=== PATIENT | female | born 1995 | race Caucasian/White ===

== ENCOUNTER → 2017-07-15 | Emergency (ER) | payer SELFPAY ==
[~2017-07-15] VITALS: Ht 152.4 cm; Wt 72.7 kg
[~2017-07-15] MED LIST: CEFTIN500 MG PO; CLARITIN 1010 MG/TAB; CONCERTA54 MG; INTUNIV4 MG PO; LORATADINE10 MG PO; LORTAB 5/500 501 TAB PO; VITAMINS; [UNRECOGNIZED DRUG - OTHER] PO
[2017-07-15 15:44] VITALS: TEMP 98.4
[2017-07-15 18:21] VITALS: BP 122/74; PULSE 87
== END ==
LOC: COL.ER 14:48
DX: T74.21XA Adult sexual abuse, confirmed, initial encounter (principal); Y07.59 Other non-family member, perpetrator of maltreatment and neglect
CPT/HCPCS: J0696

== ENCOUNTER → 2017-07-15 | Outpatient (REF) ==
[~2017-07-15] VITALS: Ht 152.4 cm; Wt 72.7 kg
[2017-07-15 15:44] VITALS: BP 128/79; PULSE 75; TEMP 98.4
== END ==
LOC: COL.ER 15:05
DX: Z04.41 Encounter for examination and observation following alleged adult rape (principal)

== ENCOUNTER 2018-01-19 16:48 | Emergency (ER) | payer OTHER ==
[~2018-01-19] VITALS: Ht 152.4 cm; Wt 80.9 kg
[2018-01-19 16:54] VITALS: TEMP 98.1
[2018-01-19 18:01] LABS: BASO % 0.3 % (0.0-2.0); EOS # 0.2 (0.0-0.7); EOS % 1.8 % (0-4.0); GRAN # 6.8 (1.4-6.5); GRAN % 74.4 % (42.2-75.2); HEMATOCRIT 40.8 % (37.0-47.0); HEMOGLOBIN 13.7 g/dl (12.5-16.0); LYMPH # 1.6 (1.2-3.4); LYMPH % 17.9 % (20.0-51.0); MEAN CELL VOLUME 84 fl (80.0-100.0); MEAN CORPUSCULAR HEMOGLOBIN 28 pg (27.0-31.0); MEAN CORPUSCULAR HGB CONC 34 g/dl (33.0-37.0); MEAN PLATELET VOLUME 9.8 fl (7.4-10.4); MONO # 0.5 (0.1-0.6); MONO % 5.4 % (1.7-9.3); PLATELET COUNT 263 K/mm3 (130-400); RED BLOOD COUNT 4.84 M/mm3 (4.10-5.30)
[2018-01-19 18:10] LABS: ALBUMIN 4.2 gm/dL (3.5-5.0); BILIRUBIN,TOTAL 0.3 mg/dL (0.0-1.0); CREATININE, serum 0.55 mg/dL (0.52-1.25); POTASSIUM 3.7 mmol/L (3.4-5.0); TOTAL PROTEIN 8.1 gm/dL (6.4-8.2)
[2018-01-19 18:18] LABS: COLLECTION METHOD CATHETER
[2018-01-19 18:24] LABS: MUCOUS Present /lpf; PH 5 (5-8); SQUAMOUS EPITHELIAL 0-2 /hpf; URINE APPEARANCE Clear; URINE BACTERIA Rare /hpf; URINE BILIRUBIN Negative (NEGATIVE); URINE BLOOD Negative (NEGATIVE); URINE COLOR Yellow; URINE GLUCOSE Negative (NEGATIVE); URINE KETONE Negative (NEGATIVE); URINE LEUKOCYTE ESTERASE Negative (NEGATIVE); URINE NITRATE Negative (NEGATIVE); URINE PROTEIN(semi-quant) Negative (NEGATIVE); URINE RBC 0-2 /hpf; URINE UROBILINOGEN Negative (NEGATIVE)
[2018-01-19] MEDS ORDERED: [UNRECOGNIZED DRUG - OTHER] PO (18:57)
[2018-01-19] MEDS ORDERED: CRANBERRY FRUI425 MG PO (18:58)
[2018-01-19 19:35] VITALS: BP 140/68; PULSE 94
== END 2018-01-19 19:36 | disposition home or self-care (01) ==
LOC: COL.ER 16:48
PROVIDERS: Physician Assistant
DX: O46.91 Antepartum hemorrhage, unspecified, first trimester (principal); Z3A.08 8 weeks gestation of pregnancy; Z86.73 Personal history of transient ischemic attack (TIA), and cerebral infarction without residual deficits

== ENCOUNTER 2018-02-03 10:45 | Emergency (ER) | payer OTHER ==
[~2018-02-03] VITALS: Ht 152.4 cm; Wt 81.8 kg
[~2018-02-03 10:45] MED LIST changes: +CRANBERRY FRUI425 MG PO; +[UNRECOGNIZED DRUG - OTHER] PO
[2018-02-03 10:52] VITALS: TEMP 98.8
[2018-02-03 11:12] LABS: BASO % 0.3 % (0.0-2.0); EOS # 0.2 (0.0-0.7); EOS % 2.3 % (0-4.0); GRAN # 4.7 (1.4-6.5); GRAN % 67.3 % (42.2-75.2); HEMATOCRIT 38.4 % (37.0-47.0); HEMOGLOBIN 12.5 g/dl (12.5-16.0); LYMPH # 1.6 (1.2-3.4); LYMPH % 23.1 % (20.0-51.0); MEAN CELL VOLUME 87 fl (80.0-100.0); MEAN CORPUSCULAR HEMOGLOBIN 28 pg (27.0-31.0); MEAN CORPUSCULAR HGB CONC 33 g/dl (33.0-37.0); MEAN PLATELET VOLUME 9.7 fl (7.4-10.4); MONO # 0.5 (0.1-0.6); MONO % 6.7 % (1.7-9.3); PLATELET COUNT 273 K/mm3 (130-400); RED BLOOD COUNT 4.41 M/mm3 (4.10-5.30); REDCELL DISTRIBUTION WIDTH-CV 12.5 % (11.5-14.5)
[2018-02-03 11:24] LABS: CALCIUM 8.5 mg/dL (8.4-10.2); CREATININE, serum 0.52 mg/dL (0.52-1.25); POTASSIUM 4.5 mmol/L (3.4-5.0)
[2018-02-03 11:56] LABS: THYROID STIMULATING HORMONE 2.28 uIU/mL (0.465-4.680)
[2018-02-03 13:59] VITALS: BP 132/73; PULSE 80
== END 2018-02-03 13:59 | disposition home or self-care (01) ==
LOC: COL.ER 10:45
PROVIDERS: Emergency Medicine
DX: O03.9 Complete or unspecified spontaneous abortion without complication (principal)

== ENCOUNTER 2021-10-23 13:32 | Emergency (ER) | payer OTHER ==
[~2021-10-23] VITALS: Ht 152.4 cm; Wt 86.4 kg
[2021-10-23 13:46] VITALS: BP 135/92; PULSE 90; TEMP 98.1
[2021-10-23 15:18] LABS: BASO % 0.4 % (0.0-2.0); EOS # 0.1 K/mm3 (0.0-0.7); EOS % 1.5 % (0.0-4.0); GRAN # 5.2 K/mm3 (1.4-6.5); GRAN % 72.8 % (42.2-75.2); HEMATOCRIT 40.8 % (37.0-47.0); HEMOGLOBIN 13.4 g/dl (12.5-16.0); LYMPH # 1.4 K/mm3 (1.2-3.4); LYMPH % 19.6 % (20.0-51.0); MEAN CELL VOLUME 89 fl (80.0-100.0); MEAN CORPUSCULAR HEMOGLOBIN 29 pg (27-31); MEAN CORPUSCULAR HGB CONC 33 g/dl (33.0-37.0); MEAN PLATELET VOLUME 10.7 fl (7.4-10.4); MONO # 0.4 K/mm3 (0.1-0.6); MONO % 5.4 % (1.7-9.3); PLATELET COUNT 261 K/mm3 (130-400); RED BLOOD COUNT 4.57 M/mm3 (4.10-5.30); REDCELL DISTRIBUTION WIDTH-CV 12.2 % (11.5-14.5)
[2021-10-23 15:30] LABS: ALBUMIN 3.9 gm/dL (3.5-5.0); BILIRUBIN,TOTAL 0.3 mg/dL (0.2-1.2); CALCIUM 8.7 mg/dL (8.4-10.2); CREATININE, serum 0.72 mg/dL (0.57-1.11); POTASSIUM 3.7 mmol/L (3.5-4.5); TOTAL PROTEIN 7.4 gm/dL (6.2-8.1)
== END 2021-10-23 16:00 | disposition home or self-care (01) ==
LOC: COL.ER 13:32
PROVIDERS: Physician Assistant
DX: G43.909 Migraine, unspecified, not intractable, without status migrainosus (principal)
CPT/HCPCS: J1200; J1885; J2765; J7030